=== PATIENT | male | born 1960 | race Two or more races ===

== ENCOUNTER 2020-12-20 06:23 | Inpatient (IN) | payer OTHER ==
[~2020-12-20] VITALS: Ht 172.7 cm; Wt 77.0 kg
[~2020-12-20 06:23] MED LIST: AUGMENTIN 500-1 EACH PO; IBU600 MG PO; MUCINEX DM ER1 EAC1 PO; VENTOLIN HFA 66.7 GM INH
[2020-12-20 08:46] LABS: HEMOGLOBIN 14.7 gm/dl (14.0-17.5); RED BLOOD COUNT 4.67 M/UL (4.20-5.50); WHITE BLOOD COUNT 8.6 K/UL (4.5-11.0)
[2020-12-20 09:05] LABS: BUN/CREATININE RATIO 35 (0-10)
[2020-12-20] MEDS ORDERED: NOVOLIN N100 UNIT/2 SC (11:44)
[2020-12-20] MEDS ORDERED: GLUCOPHAGE 500500 MG PO (11:44)
[2020-12-21 02:28] LABS: RED BLOOD COUNT 4.52 M/UL (4.20-5.50)
[2020-12-21 02:54] LABS: BUN/CREATININE RATIO 38 (0-10)
[2020-12-21 03:03] LABS: WHITE BLOOD COUNT 11.1 K/UL (4.5-11.0)
[2020-12-22 04:35] LABS: RED BLOOD COUNT 4.6 M/UL (4.20-5.50); WHITE BLOOD COUNT 10.4 K/UL (4.5-11.0)
[2020-12-22 04:57] LABS: BUN/CREATININE RATIO 34 (0-10)
[2020-12-25 02:48] LABS: HEMOGLOBIN 14.7 gm/dl (14.0-17.5); RED BLOOD COUNT 4.73 M/UL (4.20-5.50); WHITE BLOOD COUNT 9.9 K/UL (4.5-11.0)
[2020-12-25 03:05] LABS: BUN/CREATININE RATIO 43 (0-10)
--- NOTE | 2020-12-25 11:15 | NUR ---
PATIENT GAVE CONSENT FOR CT OF THE CHEST AT THIS TIME VIA [employer]LEASE WORKER. CALL NUMBER [phone]. [employer] WORKER NAME [email or web address]. I WAS AT BEDSIDE AND WITNESSED VERBAL CONSENT FOR SCAN.
--- NOTE | 2020-12-26 13:38 | NUR ---
PATIENT NOTED TO DESAT TO THE HIGH 70'S LOW 80'S DURING AMBULATION WITH 6LNC IN PLACE. PATIENT RESTING IN BED AT THIS TIME WITH NO DISTRESS NOTED.
[2020-12-27] MEDS ORDERED: ASPIR-TRIN325 MG PO (12:19)
== END 2020-12-27 15:48 | disposition home or self-care (01) | DRG 177 ==
LOC: ER1 06:23 → CDU 09:21 → PROG CARE 09:21 → MED SURG 4 09:21 → CDU 09:22 → PROG CARE 15:25 → MED SURG 4 12-21 14:54
PROVIDERS: Emergency Medicine; ADMIT Internal Medicine
PROC: 3E0333Z Introduction of Anti-inflammatory into Peripheral Vein, Percutaneous Approach (ICD-10-PCS; principal; 2020-12-20)
PROC: 8E0ZXY6 Isolation (ICD-10-PCS; 2020-12-20)
PROC: XW033E5 Introduction of Remdesivir Anti-infective into Peripheral Vein, Percutaneous Approach, New Technology Group 5 (ICD-10-PCS; 2020-12-21)
DX: U07.1 COVID-19 (principal); J12.82 Pneumonia due to coronavirus disease 2019; J96.01 Acute respiratory failure with hypoxia; E11.65 Type 2 diabetes mellitus with hyperglycemia; Z79.4 Long term (current) use of insulin; Z82.0 Family history of epilepsy and other diseases of the nervous system
CPT/HCPCS: 0240U; 36415; 36600; 71045; 71046; 80048; 80053; 82550; 82553; 82803; 82962; 83036; 83690; 83874; 83880; 84484; 85025; 85610; 87040; 93005; 94640; 94664; 94760; 96365; 96367; 96375; 99285; J0692; J0696; J1100; J1650; J7030; J7040; Q9967

== ENCOUNTER 2021-10-31 10:43 | Emergency (ER) | payer OTHER ==
[~2021-10-31 10:43] MED LIST changes: +ASPIR-TRIN325 MG PO; +GLUCOPHAGE 500500 MG PO; +NOVOLIN N100 UNIT/2 SC
[2021-10-31 11:35] LABS: RED BLOOD COUNT 4.47 M/UL (4.20-5.50); WHITE BLOOD COUNT 4.6 K/UL (4.5-11.0)
[2021-10-31 12:01] LABS: BUN/CREATININE RATIO 22 (0-10)
[2021-10-31] MEDS ORDERED: ONDANSETRON ODT4 MG PO (13:22)
== END 2021-10-31 13:30 | disposition home or self-care (01) ==
LOC: ER1 10:43
PROVIDERS: Nurse Practitioner
DX: K29.70 Gastritis, unspecified, without bleeding (principal); E11.9 Type 2 diabetes mellitus without complications; Z20.822 Contact with and (suspected) exposure to COVID-19
CPT/HCPCS: 0240U; 71045; 80053; 81001; 82150; 82550; 82553; 83690; 83874; 84484; 85025; 93005; 96374; 99284; J2405